=== PATIENT | female | born 1940 | race Hispanic/Latino ===

== ENCOUNTER 2020-05-31 11:12 | Inpatient (IN) | payer MEDICARE ==
[2020-05-31] VITALS (14 sets, daily range): BP systolic 107–141; BP diastolic 52–115
[~2020-05-31] VITALS: Ht 147.3 cm; Wt 58.1 kg
[2020-05-31 12:07] LABS: BASOPHILS # (AUTO) 0.1 (0.0-0.1); BASOPHILS % 0.6 % (0.0-1.0); EOSINOPHILS # (AUTO) 0.4 (0.0-0.4); EOSINOPHILS % 5.1 % (0.0-6.0); HEMOGLOBIN 14.3 g/dL (12.0-16.0); LYMPHOCYTES # (AUTO) 2.9 (1.0-3.2); LYMPHOCYTES % 36.5 % (18.0-39.1); MEAN CORPUSCULAR HEMOGLOBIN 27.8 pg (28-32); MEAN CORPUSCULAR HGB CONC 32.5 g/dL (31-35); MEAN CORPUSCULAR VOLUME 85.4 fL (81-99); MONOCYTES # (AUTO) 0.5 (0.2-0.8); MONOCYTES % 6.9 % (4.4-11.3); NEUTROPHILS # (AUTO) 3.9 (2.1-6.9); NEUTROPHILS % 50.3 % (38.7-80.0); PLATELET COUNT 298 x10e3/uL (140-360); RED BLOOD COUNT 5.15 x10e6/uL (3.6-5.1); RED CELL DISTRIBUTION WIDTH 13.4 % (11.7-14.4)
[2020-05-31 12:17] LABS: INR 0.93; PARTIAL THROMBOPLASTIN TIME 29.7 seconds (23.8-35.5); PROTHROMBIN TIME 12.9 seconds (11.9-14.5)
[2020-05-31 12:21] LABS: BILIRUBIN,URINE NEGATIVE (NEGATIVE); CLARITY,URINE CLEAR (CLEAR); COLOR,URINE YELLOW (YELLOW); KETONES,URINE NEGATIVE (NEGATIVE); LEUKOCYTE ESTERASE ,URINE SMALL (NEGATIVE); NITRITE,URINE NEGATIVE (NEGATIVE); PROTEIN,URINE DIPSTICK NEGATIVE (NEGATIVE); URINE UROBILINOGEN 0.2 mg/dL (0.2 - 1)
[2020-05-31] MEDS ORDERED: SODIUM CHLORIDE 0.9% 1000ML 1,000 ML ONE ×2 (12:23→18:22)
[2020-05-31] MEDS ORDERED: FENTANYL CITRATE/PF 100MCG/2 ML INJ ONE ×2 (12:23→18:21)
[2020-05-31] MEDS ORDERED: IOPAMIDOL 370 MG/ML 200 ML INFUS..BTL INJ ONE (12:23)
[2020-05-31] MEDS ORDERED: MIDAZOLAM HCL 2 MG/2 ML VIAL ONE ×3 (12:23→19:56)
[2020-05-31] MEDS ORDERED: LIDOCAINE HCL 2% LOCAL 20 ML VIAL ONE ×2 (12:23→18:22)
[2020-05-31] MEDS ORDERED: HEPARIN SOD/SOD CHLORIDE 2,000 ML ONE ×2 (12:23→18:22)
[2020-05-31 12:28] LABS: ALANINE AMINOTRANSFERASE 66 IU/L (0-55); ALBUMIN 4.4 g/dL (3.5-5.0); ALBUMIN/GLOBULIN RATIO 1.2 (0.8-2.0); ALKALINE PHOSPHATASE 53 IU/L (40-150); ANION GAP 16.9 mmol/L (8-16); BLOOD UREA NITROGEN 24 mg/dL (7-26); BUN/CREATININE RATIO 23 (6-25); CALCIUM 10.5 mg/dL (8.4-10.2); CARBON DIOXIDE 24 mmol/L (22-29); CHLORIDE 103 mmol/L (98-107); CREATINE KINASE 64 IU/L (29-168); CREATININE, SERUM 1.06 mg/dL (0.57-1.11); EST GLOMERULAR FILTRATION RATE 50 ML/MIN (60-); GLUCOSE 106 mg/dL (74-118); SODIUM 141 mmol/L (136-145)
[2020-05-31 12:32] LABS: POTASSIUM 2.9 mmol/L (3.5-5.1)
--- NOTE | 2020-05-31 12:33 | Emergency Department Note ---
History of Present Illnes History of Present Illness Chief Complaint: General Medicine Complaints History of Present Illness This is a 80 year old female PATIENT IN FROM DR LAZARO'S OFFICE FOR ECG CHANGES, ADMISSION FOR A HEART CATH; PATIENT WITH COMPLAINTS OF CHEST PAIN OFF AND ON X 1 WEEK RADIATING UP INTO HER JAW. PATIENT ALERT AND ORIENTED, RESP EVEN AND NONLABORED, APPEARS IN NO DISTRESS, DENIES PAIN AT THIS TIME. Historian: Patient Arrival Mode: Car Onset (how long ago): week(s) Location: CHEST Quality: PRESSURE Radiation: Reports neck Severity: moderate Onset quality: gradual Timing of current episode: intermittent Progression: waxing and waning Chronicity: new Context: Denies recent illness Relieving factors: none Exacerbating factors: none Associated symptoms: Reports chest pain, Reports shortness of breath Past Medical/Family History Physician Review I have reviewed the patient's past medical and family history. Any updates have been documented here. Past Medical History Recent Fever: No Clinical Suspicion of Infectio: No New/Unexplained Change in Ment: No Past Medical History: Hypertension, Hyperlipedemia Other Medical History: OSTEOPOROSIS Past Surgical History: None Social History Smoking Cessation: Never Smoker Counseling Performed: No Alcohol Use: None Any Illegal Drug Use: No TB Exposure/Symptoms: No Physically hurt or threatened: No Family History Family history of heart diseas: No Other Any Pre-Existing Lines (PICC,: No Review of Systems Review of Systems Constitutional: Reports no symptoms EENTM: Reports no symptoms Cardiovascular: Reports chest pain Respiratory: Reports dyspnea on exertion Gastrointestinal: Reports no symptoms Genitourinary: Reports no symptoms Musculoskeletal: Reports no symptoms Integumentary: Reports no symptoms Neurological: Reports no symptoms Psychological: Reports no symptoms Endocrine: Reports no symptoms Hematological/Lymphatic: Reports no symptoms Physical Exam Related Data Allergies: Uncoded Allergies: VITAMIN C (Allergy, Unknown, 05/31/20) Triage Vital Signs Vital Signs Date Time Temp Pulse Resp B/P (MAP) Pulse Ox O2 Delivery O2 Flow Rate FiO2 05/31/20 11:38 98.6 82 20 153/68 98 Room Air Vital signs reviewed: Yes Physical Exam CONSTITUTIONAL Constitutional: Present well-developed, Present well-nourished HENT HENT: Present normocephalic, Present atraumatic, Present oropharynx clear/moist, Present nose normal HENT L/R: Present left ext ear normal, Present right ext ear normal EYES Eyes: Reports PERRL, Reports conjunctivae normal NECK Neck: Present ROM normal PULMONARY Pulmonary: Present effort normal, Present breath sounds normal CARDIOVASCULAR Cardiovascular: Present regular rhythm, Present heart sounds normal, Present capillary refill normal, Present normal rate GASTROINTESTINAL Abdominal: Present soft, Present nontender, Present bowel sounds normal GENITOURINARY Genitourinary: Present exam deferred SKIN Skin: Present warm, Present dry MUSCULOSKELETAL Musculoskeletal: Present ROM normal NEUROLOGICAL Neurological: Present alert, Present oriented x 3, Present no gross motor or sensory deficits PSYCHOLOGICAL Psychological: Present mood/affect normal, Present judgement normal Results Laboratory Result Diagram: 05/31/20 1149 Laboratory Laboratory Tests Test 05/31/20 11:53 05/31/20 11:49 Urine Color Yellow (YELLOW) Urine Clarity Clear (CLEAR) Urine pH 6 (5 - 7) Urine Specific [place] 1.010 (1.010-1.025) Urine Protein Negative (NEGATIVE) Urine Glucose (UA) Negative (NEGATIVE) Urine Ketones Negative (NEGATIVE) Urine Blood Negative (NEGATIVE) Urine Nitrite Negative (NEGATIVE) Urine Bilirubin Negative (NEGATIVE) Urine Urobilinogen 0.2 mg/dL (0.2 - 1) Urine Leukocyte Esterase Small (NEGATIVE) White Blood Count 7.81 x10e3/uL (4.8-10.8) Red Blood Count 5.15 x10e6/uL (3.6-5.1) Hemoglobin 14.3 g/dL (12.0-16.0) Hematocrit 44.0 % (34.2-44.1) Mean Corpuscular Volume 85.4 fL (81-99) Mean Corpuscular Hemoglobin 27.8 pg (28-32) Mean Corpuscular Hemoglobin Concent 32.5 g/dL (31-35) Red Cell Distribution Width 13.4 % (11.7-14.4) Platelet Count 298 x10e3/uL (140-360) Neutrophils (%) (Auto) 50.3 % (38.7-80.0) Lymphocytes (%) (Auto) 36.5 % (18.0-39.1) Monocytes (%) (Auto) 6.9 % (4.4-11.3) Eosinophils (%) (Auto) 5.1 % (0.0-6.0) Basophils (%) (Auto) 0.6 % (0.0-1.0) Neutrophils # (Auto) 3.9 (2.1-6.9) Lymphocytes # (Auto) 2.9 (1.0-3.2) Monocytes # (Auto) 0.5 (0.2-0.8) Eosinophils # (Auto) 0.4 (0.0-0.4) Basophils # (Auto) 0.1 (0.0-0.1) Absolute Immature Granulocyte (auto 0.05 x10e3/uL (0-0.1) Prothrombin Time 12.9 seconds (11.9-14.5) Prothromb Time International Ratio 0.93 Activated Partial Thromboplast Time 29.7 seconds (23.8-35.5) Lab results reviewed: Yes Imaging Imaging results reviewed: Yes Procedures 12 Lead ECG Interpretation ECG Interpretation : ECG: ECG 1 Fraud Analyst: Interpreted by ED physician Date: May 31, 2020 Time: 11:46 Rhythm: sinus rhythm Rate: normal BPM: 83 QRS axis: normal ST segments normal: Yes T wave inversion: I, II, aVL, V2 (BIPHASIC), V4, V5, V6 Other findings: LVH, early repolarization, prolonged QTc interval Clinical Impression: abnormal ECG Assessment & Plan Medical Decision Making MDM CP WITH TYPICAL SX'S - CBC, CHEM, ECG, CARDIACS, COAG'S - R/O STEMI/NSTEMI, ACS, RENAL INSUFF, ELECTROLYTE ABNL Reassessment Reassessment ADMIT TO DR LINDA, DR LAZARO TO BRING FOR CATH Assessment & Plan Final Impression: (1) Unstable angina Depart Disposition: ADMITTED Last Vital Signs Date Time Temp Pulse Resp B/P (MAP) Pulse Ox O2 Delivery O2 Flow Rate FiO2 05/31/20 11:38 98.6 82 20 153/68 98 Room Air Medications in the ED Midazolam HCl 2 mg STK-MED ONCE .ROUTE ; Start 05/31/20 at 12:23; Stop 05/31/20 at 12:16; Status DC Fentanyl Citrate 100 mcg STK-MED ONCE .ROUTE ; Start 05/31/20 at 12:23; Stop 05/31/20 at 12:16; Status DC Lidocaine HCl 400 mg STK-MED ONCE .ROUTE ; Start 05/31/20 at 12:23; Stop 05/31/20 at 12:16; Status DC Heparin Sodium/ Sodium Chloride 2,000 ml @ ud STK-MED ONCE .ROUTE ; Start 05/31/20 at 12:23; Stop 05/31/20 at 12:18; Status DC Iopamidol 148,000 mg STK-MED ONCE INJ ; Start 05/31/20 at 12:23; Stop 05/31/20 at 12:18; Status DC Sodium Chloride 1,000 ml @ ud STK-MED ONCE .ROUTE ; Start 05/31/20 at 12:23; Stop 05/31/20 at 12:18; Status DC LINDA CHEUNG MD May 31, 2020 12:33
[2020-05-31 12:36] LABS: BACTERIA,URINE RARE /HPF; EPITHELIAL CELLS,URINE FEW /LPF; RBC,URINE 0-5 /HPF (0-5)
[2020-05-31 12:37] LABS: MUCUS,URINE FEW (RARE); RENAL EPITHELIAL CELLS,URINE FEW
[2020-05-31] MEDS ORDERED: POTASSIUM CHLORIDE 20 MEQ TAB CR PO STA (12:49)
--- NOTE | 2020-05-31 12:50 | NUR ---
COVID SWAB ORDERED AT THIS TIME - PATIENT LEFT FOR GIFT CONSULTANT AT 1238. NOT COMPLETED IN THE ED DUE TO ORDER BEING PLACED AFTER PATIENT WAS ALREADY IN GIFT CONSULTANT.
[2020-05-31] MEDS ORDERED: MORPHINE SULFATE INJ 4 MG/ML INJ 1ML IV PRN ×2 (13:30→20:30)
[2020-05-31] MEDS ORDERED: ONDANSETRON HCL INJ 2MG/ML 2ML 2 MG/ML VIAL IV PRN ×2 (13:30→17:00)
[2020-05-31] MEDS ORDERED: HYDROCODONE/APAP 5MG-325MG TAB PO PRN (13:30)
--- NOTE | 2020-05-31 13:45 | NUR ---
Pt arrived on floor via stretcher from skilled laborer. Pt in no apparent distress. Denies pain 0/10. Right groin incision clean, dry, and intact. Oriented patient and to room, bed in lowest position, call light within reach, patient advised to lay flat for 4hrs.
[2020-05-31] MEDS: SODIUM CHLORIDE 0.9% 1000ML 1,000 ML IV SCH (14:15)
--- NOTE | 2020-05-31 15:43 | Operative Report ---
DATE OF PROCEDURE: 05/31/2020 SURGEON: Homero Martinez MD INDICATION: Coronary artery disease, unstable angina. PROCEDURES PERFORMED: 1. Left heart catheterization, selective coronary angiography. 2. Left ventriculography. 3. Deployment of right groin Perclose closure device. 4. Conscious sedation, 35 minutes. COMPLICATIONS: None. RECOMMENDATIONS: Aggressive therapy for hypertensive heart disease and myocardial bridge. DESCRIPTION OF PROCEDURE: Access was obtained in the right femoral artery. A 6-Kyrgyz sheath was placed. Coronary angiography demonstrated mild coronary artery disease, 20% to 30% luminal irregularities. LV end-diastolic pressure was elevated at 34. No gradient across the aortic valve pullback. 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 No intervention deemed necessary. Right groin repaired using Perclose closure device. The patient was discharged home same day. MD LAURENCE Heard/MODL /[id number]
--- NOTE | 2020-05-31 15:45 | NUR ---
c/o RLE numbness, patient able to wiggle toes, unable to listen to doppler sound. Right foot cooler than left foot. Pulse to left foot strong. Paged
--- NOTE | 2020-05-31 16:03 | NUR ---
aware of patient's status. Orders for stat doppler received. Antonio SANTILLANsubwarehouse supervisor [facility].
--- NOTE | 2020-05-31 16:57 | NUR ---
H&P cc: chest pain HPI: 80yoF, PCP , developed worsening cp over past 5 days, associated with SOB and dizziness. Sent to ER, cardiology performed LHC, which was noted to be normal. Postprocedure, pt developed cool/cold right leg, arterial doppler ordered. PMH: HTN, overweight, HLD, GERD, stroke PShx: unknown Allergies; see emr FH/SH: ; no cigs meds; see MAR ROS: no f/c/s/N/V/D/HEAD/skin rash/confusion/back pain/leg pain/vision changes v/s revd PE tired appearing anicteric ns1s2 mod bs soft nt nd RIGHT GROIN WITH DRESSING, SOFT AND NONTENDER right foot with 1+ pulse; cool skin dry flat affect a&ox3; romero labs/meds revd A/P: Unstable angina- LHC negative; use ASA/statin Abnormal EKG- as above Hypok- recheck TAMMY- IVF Hypercalcemia- rehydrate Transaminitis- recheck in am UTI- IV abx Prop: ppi dispo: MANJULA LINDA MD, PhD.
[2020-05-31] MEDS ORDERED: DOCUSATE SODIUM 100 MG CAP PO PRN (17:00)
[2020-05-31] MEDS ORDERED: HEPARIN SOD (PORCINE) 5,000 UNIT/ML VIAL IV ONE (18:00)
--- NOTE | 2020-05-31 18:10 | NUR ---
ORDERS TO START HEPARIN RECEIVED. AWAITING FOR ORDERS TO BE VERIFIED
[2020-05-31] MEDS: HEPARIN 25,000 UNIT 700 UNIT in DEXTROSE 5% 250ML 250 ML IV SCH (18:15)
[2020-05-31] MEDS ORDERED: HEPARIN SOD (PORCINE) 1000 UNIT/ML 30ML ONE (18:21)
[2020-05-31] MEDS ORDERED: IOPAMIDOL 300MG/ML 100 ML INFUS..BTL IV ONE ×2 (18:22→20:08)
[2020-05-31 19:06] LABS: CREATINE KINASE MB 2.2 ng/mL (0-5.0)
[2020-05-31] MEDS ORDERED: EPTIFIBATIDE 10 ML ONE (19:19)
--- NOTE | 2020-05-31 19:21 | NUR ---
REPORT GIVEN TO ONCOMING NURSE OF PATIENT'S STATUS.
--- NOTE | 2020-05-31 19:21 | NUR ---
TAKEN TO HEART CATH FOR PROCEDURE. NO S/S OF ACUTE DISTRESS NOTED.
[2020-05-31] MEDS ORDERED: ALTEPLASE RECOMBINANT 2 MG/2 ML VIAL ONE (19:35)
[2020-05-31] MEDS ORDERED: SODIUM CHLORIDE 0.9% 50ML 50 ML ONE (19:35)
[2020-05-31] MEDS ORDERED: ALTEPLASE RECOMBINANT 2 MG/2 ML VIAL IV ONE (19:38)
[2020-05-31] MEDS ORDERED: HEPARIN SOD/SOD CHLORIDE 1,000 ML ONE (19:40)
[2020-05-31] MEDS ORDERED: ATROPINE SULFATE 0.1 MG/ML 10ML SYR ONE (19:52)
[2020-05-31] MEDS ORDERED: LABETALOL HCL 5 MG/ML 20ML VIAL IV PRN (20:30)
[2020-05-31] MEDS ORDERED: PRASUGREL 10 MG TAB ONE (20:43)
--- NOTE | 2020-05-31 20:59 | Operative Report ---
DATE OF PROCEDURE: 05/31/2020 SURGEON: Homero Martinez MD INDICATION: Critical limb ischemia. PROCEDURES PERFORMED: 1. Abdominal aortogram. 2. Right lower extremity angiogram with third-order catheter placement. 3. Primary thrombectomy of the right femoral artery. 4. Stent placement, right common femoral artery. COMPLICATIONS: None. DESCRIPTION OF PROCEDURE: Access obtained in the left femoral artery. A 6-Portuguese sheath was placed. Abdominal aortogram demonstrated widely patent abdominal aorta and iliacs. Right common femoral artery is completely occluded at the level of a previously placed malfunctioning Perclose closure device. The patient received intravenous heparin for anticoagulation. The lesion was crossed using a Glidewire. The wire was exchanged to a [place] wire, thrombolysis and thrombectomy using AngioJet device was performed following which the retained thrombus was noted as well as slow flow. A single 6 x 50 mm Viabahn covered stent was deployed post dilated to 18 atmospheres with a 5 mm balloon. Excellent runoff to the foot. Three-vessel stent appeared patent. The profunda femoris artery was jailed within the stent. No further intervention deemed necessary. Left sheath was secured in place. The patient transferred to ICU in stable condition. Homero Martinez MD [facility]/MODL /[id number]
[2020-05-31] MEDS: ATORVASTATIN 20 MG TAB PO SCH (21:00)
[2020-05-31 21:16] LABS: BASOPHILS # (AUTO) 0.1 (0.0-0.1); BASOPHILS % 0.4 % (0.0-1.0); EOSINOPHILS # (AUTO) 0.1 (0.0-0.4); EOSINOPHILS % 0.6 % (0.0-6.0); HEMATOCRIT 34.4 % (34.2-44.1); HEMOGLOBIN 11.4 g/dL (12.0-16.0); LYMPHOCYTES # (AUTO) 1.1 (1.0-3.2); LYMPHOCYTES % 9.6 % (18.0-39.1); MEAN CORPUSCULAR HEMOGLOBIN 28.6 pg (28-32); MEAN CORPUSCULAR HGB CONC 33.1 g/dL (31-35); MEAN CORPUSCULAR VOLUME 86.4 fL (81-99); MONOCYTES # (AUTO) 0.6 (0.2-0.8); NEUTROPHILS # (AUTO) 9.8 (2.1-6.9); NEUTROPHILS % 83.9 % (38.7-80.0); PLATELET COUNT 278 x10e3/uL (140-360); RED BLOOD COUNT 3.98 x10e6/uL (3.6-5.1); RED CELL DISTRIBUTION WIDTH 13.3 % (11.7-14.4)
[2020-06-01] VITALS (29 sets, daily range): BP systolic 100–141; BP diastolic 44–76
[2020-06-01 00:16] LABS: ANION GAP 15.9 mmol/L (8-16); CALCIUM 8.4 mg/dL (8.4-10.2); CREATININE, SERUM 1.02 mg/dL (0.57-1.11); POTASSIUM 3.9 mmol/L (3.5-5.1)
[2020-06-01 00:35] LABS: CREATINE KINASE MB 2.1 ng/mL (0-5.0)
[2020-06-01] MEDS: SODIUM CHLORIDE 0.9% 1000ML 1,000 ML IV SCH ×3 (00:41→20:58)
[2020-06-01 06:26] LABS: BASOPHILS % 0.4 % (0.0-1.0); HEMATOCRIT 31.7 % (34.2-44.1); HEMOGLOBIN 10.2 g/dL (12.0-16.0); LYMPHOCYTES # (AUTO) 1.4 (1.0-3.2); LYMPHOCYTES % 12.2 % (18.0-39.1); MEAN CORPUSCULAR HEMOGLOBIN 28.5 pg (28-32); MEAN CORPUSCULAR HGB CONC 32.2 g/dL (31-35); MEAN CORPUSCULAR VOLUME 88.5 fL (81-99); MONOCYTES # (AUTO) 0.9 (0.2-0.8); NEUTROPHILS % 78.8 % (38.7-80.0); PLATELET COUNT 259 x10e3/uL (140-360); RED BLOOD COUNT 3.58 x10e6/uL (3.6-5.1); RED CELL DISTRIBUTION WIDTH 13.5 % (11.7-14.4)
--- NOTE | 2020-06-01 06:31 | NUR ---
IM- progress note O/N see below ROS: no f/c/s/N/V/D/HEAD/skin rash/confusion/back pain/leg pain/vision changes v/s revd PE tired appearing anicteric ns1s2 mod bs soft nt nd RIGHT GROIN WITH DRESSING, SOFT AND NONTENDER right foot with 1+ pulse; cool skin dry flat affect a&ox3; romero labs/meds revd A/P: Unstable angina- LHC negative; use ASA/statin Abnormal EKG- as above Hypok- recheck TAMMY- IVF Hypercalcemia- rehydrate Transaminitis- recheck in am UTI- IV abx Prop: ppi dispo: 06-01 f/u renal fn; cardiac diet; monitor closely; MANJULA LINDA MD, PhD.
--- NOTE | 2020-06-01 06:47 | NUR ---
Pt arrived via stretcher from the label remover at 2044 s/p stent placement. Pt had a left heart cath to Right groin and perc closure. During initial post op period in a different recovery area, pt's leg became cold and was brought back to the label remover for stent placement using the Left groin. On arrival to ICU, pt was bleeding from L groin with manual pressure held x 1 hr, small ooze noted to R groin which resolved with 5 min pressure. Bilateral groin SFD and intact. Pulses checked throughout per protocol: R DP 1+, L DP 2+ as per report. Labetolol x 1 given for pressure control. Large dark brown emesis at 2200 with zofran IV given and Morphine IV for pain control. Remains SR 70s, normotensive. 2L/nc while sleeping for sats in the 88-89% range. Void x 1 for 150 dark old bloody brown urine output. Covid test done and resulted negative. was here at bedside for an update. Pt's brother in law also updated via phone.
[2020-06-01 06:58] LABS: ALBUMIN 3.4 g/dL (3.5-5.0); ALBUMIN/GLOBULIN RATIO 1.1 (0.8-2.0); ANION GAP 14.1 mmol/L (8-16); CALCIUM 8.3 mg/dL (8.4-10.2); CHOL/HDL RATIO 6.3 (3.0-3.6); CREATININE, SERUM 1.08 mg/dL (0.57-1.11); POTASSIUM 4.1 mmol/L (3.5-5.1)
[2020-06-01 07:19] LABS: CREATINE KINASE MB 1.7 ng/mL (0-5.0)
[2020-06-01] MEDS: PANTOPRAZOLE 40 MG 10ML VIAL IV SCH (08:29)
[2020-06-01] MEDS ORDERED: ASPIRIN 325 MG TAB PO SCH (09:00)
[2020-06-01] MEDS ORDERED: LEVOCETIRIZINE D5 MG PO (09:31)
[2020-06-01] MEDS ORDERED: AMLODIPINE BESYL5 MG PO (09:31)
[2020-06-01] MEDS ORDERED: ALENDRONATE SOD70 MG (09:31)
[2020-06-01] MEDS ORDERED: GEMFIBROZIL600 MG PO (09:31)
[2020-06-01] MEDS ORDERED: OXAPROZIN600 MG PO (09:40)
[2020-06-01] MEDS ORDERED: HYDROCHLOROTHIA25 MG PO (09:40)
[2020-06-01] MEDS ORDERED: NEXIUM40 MG PO (09:40)
[2020-06-01 13:24] LABS: BILIRUBIN,URINE SMALL (NEGATIVE); CLARITY,URINE CLEAR (CLEAR); COLOR,URINE YELLOW (YELLOW); KETONES,URINE NEGATIVE (NEGATIVE); LEUKOCYTE ESTERASE ,URINE NEGATIVE (NEGATIVE); NITRITE,URINE NEGATIVE (NEGATIVE); PROTEIN,URINE DIPSTICK 2+ (NEGATIVE); URINE UROBILINOGEN 0.2 mg/dL (0.2 - 1)
[2020-06-01 13:30] LABS: BACTERIA,URINE RARE /HPF; MUCUS,URINE FEW (RARE)
--- NOTE | 2020-06-01 13:34 | Progress Note ---
DATE: 06/01/2020 Cardiology Progress Note SUBJECTIVE: The patient denies chest pain or shortness of breath. She reports her right leg feels better. OBJECTIVE: VITAL SIGNS: Temperature 99.7 degrees, pulse 97, respiratory rate 18, blood pressure 126/55, and oxygen saturation 97% on 3 L nasal cannula. GENERAL: Elderly woman, in no acute distress. Awake and alert. LUNGS: Clear to auscultation bilaterally. No wheezes or crackles. CARDIOVASCULAR: Normal rate. Regular rhythm. No murmur. Normal S1 and S2. ABDOMEN: Soft and nontender. EXTREMITIES: No edema. Bilateral groin without hematoma. CARDIAC MEDICATIONS: Aspirin 325 mg p.o. daily and atorvastatin 40 mg p.o. at bedtime. LABORATORY DATA: WBC 11.37, hemoglobin 10.2, hematocrit 31.7, and platelets 259. Sodium 142, potassium 4.1, chloride 109, CO2 23, BUN 21, and creatinine 1.08. Troponin 0.052. Telemetry was personally reviewed and interpreted, revealing normal sinus rhythm. IMPRESSION: 1. Chest pain. 2. Acute limb ischemia. 3. Hypertension. 4. Hyperlipidemia. 5. History of cerebrovascular accident. 6. Elevated LFTs. RECOMMENDATIONS: Decrease aspirin to 81 mg daily. Add Plavix. Given acute thrombus of the femoral artery, we will also add 2.5 mg of Xarelto twice daily. Continue atorvastatin. Monitor blood pressure closely. She does have myocardial bridging that was seen on cardiac catheterization. We will start her on low-dose metoprolol. The patient can be discharged from a cardiac standpoint. Thank you for this consult. We will continue to follow. Krystle Ta MD ABS/MODL /[id number]
[2020-06-01] MEDS ORDERED: CLOPIDOGREL BISULFATE 75 MG TAB PO ONE (13:45)
[2020-06-01] MEDS: HEPARIN 25,000 UNIT 700 UNIT in DEXTROSE 5% 250ML 250 ML IV SCH (17:52)
[2020-06-01] MEDS ORDERED: METOPROLOL TARTRATE 25 MG TAB PO SCH (21:00)
[2020-06-01] MEDS: ATORVASTATIN 20 MG TAB PO SCH (21:13)
--- NOTE | 2020-06-01 21:30 | NUR ---
Report called to [facility] nurse Nimo. Pt transferred in stable condition to bed 111 with all belongings.
[2020-06-02] VITALS (8 sets, daily range): BP systolic 120–139; BP diastolic 49–60
[2020-06-02] MEDS: SODIUM CHLORIDE 0.9% 1000ML 1,000 ML IV SCH ×2 (04:39→15:30)
--- NOTE | 2020-06-02 07:19 | NUR ---
IM- progress note O/N see below ROS: no f/c/s/N/V/D/HEAD/skin rash/confusion/back pain/leg pain/vision changes v/s revd PE tired appearing anicteric ns1s2 mod bs soft nt nd RIGHT GROIN WITH DRESSING, SOFT AND NONTENDER right foot with 1+ pulse; cool skin dry flat affect a&ox3; romero labs/meds revd A/P: Unstable angina- LHC negative; use ASA/statin Abnormal EKG- as above Hypok- recheck TAMMY- IVF Hypercalcemia- rehydrate Transaminitis- recheck in am UTI- IV abx Prop: ppi dispo: 06-01 f/u renal fn; cardiac diet; monitor closely; 06-02 PAD with Acute Limb ischemia; Acute thrombus of femoral artery- treated with antiplatelet; MANJULA LINDA MD, PhD.
[2020-06-02] MEDS ORDERED: ASPIRIN 81 MG ENTERIC COATED PO SCH (09:00)
[2020-06-02] MEDS ORDERED: METOPROLOL TARTRATE 25 MG TAB PO SCH (09:00)
[2020-06-02] MEDS ORDERED: CLOPIDOGREL BISULFATE 75 MG TAB PO SCH (09:00)
--- NOTE | 2020-06-02 09:00 | NUR ---
Pt. expressed no spiritual or emotional concerns at this time. Associate Principal provided hospitality and information on how to reach plastic printer, if needed. No need to follow. KAMI OBREGON Associate Principal Spiritual Care Department O: [phone]
[2020-06-02] MEDS: PANTOPRAZOLE 40 MG 10ML VIAL IV SCH (09:40)
--- NOTE | 2020-06-02 10:53 | NUR ---
Patient evaluated for PT. Patient ambulated well ~120 ft with slight antalgic pattern on right midstance. Steady and safe. No PT needed at this time. Pt will benefit from a youth walker for home use. Addendum: 06/02/20 at 1055 by Evens Rene PT Amended: Links added.
--- NOTE | 2020-06-02 13:20 | Progress Note ---
DATE: 06/02/2020 Cardiology Progress Note SUBJECTIVE: The patient denies chest pain or shortness of breath. She reports tingling in her right leg. OBJECTIVE: VITAL SIGNS: Temperature 98.7 degrees, pulse 80, respiratory rate 14, blood pressure 122/57, and oxygen saturation 94% on room air. GENERAL: Elderly woman, in no acute distress, awake and alert. LUNGS: Clear to auscultation bilaterally. No wheezes or crackles. CARDIOVASCULAR: Normal rate. Regular rhythm. No murmur. Normal S1 and S2. ABDOMEN: Soft and nontender. EXTREMITIES: No edema. Palpable pulse in the right dorsalis pedis. CARDIAC MEDICATIONS: Metoprolol tartrate 12.5 mg p.o. q.12 hours, aspirin 81 mg p.o. daily, Plavix 75 mg p.o. daily, and atorvastatin 40 mg p.o. at bedtime. LABORATORY DATA: None today. Telemetry was personally reviewed and interpreted, revealing normal sinus rhythm. IMPRESSION: 1. Chest pain. 2. Acute limb ischemia. 3. Hypertension. 4. Hyperlipidemia. 5. History of cerebrovascular accident. 6. Elevated LFTs. RECOMMENDATIONS: Continue dual antiplatelet therapy with aspirin and Plavix. Recommend discharge on Xarelto 2.5 mg p.o. b.i.d. Continue atorvastatin. Cardiac catheterization was performed without evidence of significant coronary artery disease, however, she did have myocardial bridging. Metoprolol has been started. Assess blood pressure response. The patient can be discharged from a cardiac standpoint. Thank you for this consult. We will continue to follow. Krystle Ta MD ABS/MODL /[id number]
[2020-06-02] MEDS: HEPARIN 25,000 UNIT 700 UNIT in DEXTROSE 5% 250ML 250 ML IV SCH (18:15)
--- NOTE | 2020-06-02 18:30 | NUR ---
spoke with Dr. Ta at bedside who states pt is cleared for discharge from a Cardiology standpoint and left prescriptions for patient. paged Dr. Lake for discharge orders; Dr. Lake states he will do medication reconciliation within the hour.
[2020-06-02] MEDS ORDERED: LOPRESSOR25 MG PO (19:31)
[2020-06-02] MEDS ORDERED: ASPIRIN EC81 MG PO (19:31)
[2020-06-02] MEDS ORDERED: PLAVIX75 MG PO (19:31)
[2020-06-02] MEDS ORDERED: LIPITOR20 MG PO (19:31)
--- NOTE | 2020-06-02 19:35 | NUR ---
D/C SUmmary Principal Dx: Unstable angina- LHC negative; use ASA/statin Abnormal EKG- as above Hypok- recheck TAMMY- IVF Likely CKD3 Hypercalcemia- rehydrate Transaminitis- recheck in am UTI- IV abx Secondary Dx: Prop: ppi dispo: 06-01 f/u renal fn; cardiac diet; monitor closely; 06-02 PAD with Acute Limb ischemia; Acute thrombus of femoral artery- treated with antiplatelet; d/c home stable f/u pcp 2 days and cardio1 week and nephrology 1 week d/c>35mins MANJULA LINDA MD, PhD.
--- NOTE | 2020-06-02 19:49 | NUR ---
NOTIFIED DR. LINDA REGARDING PATIENT C/O PAIN TO [facility] 03/13 SINCE THIS MORNING. NEW ORDER RECEIVED FOR MELOXICAM 7.5MG ONCE. MD SAID TO GIVE PAIN MED AND DC PATIENT. ALSO SAID HE WILL SEND PRESCRIPTION STRAIGHT TO PATIENT PHARMACY.
[2020-06-02] MEDS ORDERED: MELOXICAM 7.5 MG TAB PO ONE (20:00)
[2020-06-02] MEDS ORDERED: XARELTO10 MG PO (20:35)
== END 2020-06-02 21:39 | disposition home or self-care (01) | DRG 271 ==
LOC: ER 12:15 → ERHOLD 12:47 → MED/SURG 13:45 → ICU 20:41 → MED/SURG 06-01 21:52
PROVIDERS: ADMIT Internal Medicine; ATTEND Internal Medicine
PROC: 04CK3ZZ Extirpation of Matter from Right Femoral Artery, Percutaneous Approach (ICD-10-PCS; principal; 2020-05-31)
PROC: X27H385 Dilation of Right Femoral Artery with Sustained Release Drug-eluting Intraluminal Device, Percutaneous Approach, New Technology Group 5 (ICD-10-PCS; 2020-05-31)
PROC: 4A023N7 Measurement of Cardiac Sampling and Pressure, Left Heart, Percutaneous Approach (ICD-10-PCS; 2020-05-31)
PROC: B2111ZZ Fluoroscopy of Multiple Coronary Arteries using Low Osmolar Contrast (ICD-10-PCS; 2020-05-31)
PROC: B2151ZZ Fluoroscopy of Left Heart using Low Osmolar Contrast (ICD-10-PCS; 2020-05-31)
DX: I74.3 Embolism and thrombosis of arteries of the lower extremities (principal); I20.0 Unstable angina; N17.9 Acute kidney failure, unspecified; N39.0 Urinary tract infection, site not specified; E87.6 Hypokalemia; E83.52 Hypercalcemia; R74.01 Elevation of levels of liver transaminase levels; I70.222 Atherosclerosis of native arteries of extremities with rest pain, left leg; Z86.73 Personal history of transient ischemic attack (TIA), and cerebral infarction without residual deficits; I12.9 Hypertensive chronic kidney disease with stage 1 through stage 4 chronic kidney disease, or unspecified chronic kidney disease; N18.30 Chronic kidney disease, stage 3 unspecified; Z11.59 Encounter for screening for other viral diseases
CPT/HCPCS: 36415; 37225; 80048; 80053; 80061; 81001; 82550; 82553; 83880; 84484; 85025; 85610; 85730; 93005; 93306; 93458; 93925; 96361; 99152; 99153; 99284; C1725; C1757; C1760; C1769; C1887; J1327; J1644; J2001; J2250; J2270; J2405; J2997; J3010; J7030; Q9967

== ENCOUNTER 2024-10-21 10:00 | Outpatient (RCR) | payer MEDICARE ==
[~2024-10-21 10:00] MED LIST: ALENDRONATE SOD70 MG; AMLODIPINE BESYL5 MG PO; ASPIRIN EC81 MG PO; GEMFIBROZIL600 MG PO; HYDROCHLOROTHIA25 MG PO; LEVOCETIRIZINE D5 MG PO; LIPITOR20 MG PO; LOPRESSOR25 MG PO; NEXIUM40 MG PO; OXAPROZIN600 MG PO; PLAVIX75 MG PO; XARELTO10 MG PO
== END 2024-11-01 ==
LOC: PT 10:00
PROVIDERS: ATTEND Physician Assistant
DX: M75.101 Unspecified rotator cuff tear or rupture of right shoulder, not specified as traumatic (principal)